=== PATIENT | female | born 1960 | race Caucasian/White ===

== ENCOUNTER 2024-12-18 09:57 | Outpatient (CLI) | payer MEDICARE, SELFPAY | END 2024-12-18 09:58 | disposition home or self-care (01) | LOC: AMB 12-19 12:49 | PROVIDERS: PCP Family Medicine; Visit Provider Emergency Medicine | DX: T78.40XA Allergy, unspecified, initial encounter (principal); I95.9 Hypotension, unspecified | CPT/HCPCS: A0425; A0427 ==

== ENCOUNTER 2024-12-18 10:25 | Emergency (ER) | payer MEDICARE, SELFPAY ==
[2024-12-18] VITALS (88 sets, daily range): BP systolic 136–201; BP diastolic 65–150; PULSE 97–118; RESP 14–41; TEMP 36.5–36.8; O2SAT 90–100; BMI 38.4
[2024-12-18] MEDS: METHYLPREDNISOLONE SOD SUCC 62.5 MG/ML (125) 125 MG IVP (10:28)
[2024-12-18] MEDS: FAMOTIDINE 10 MG/ML inj 20 MG IVP (10:30)
--- NOTE | 2024-12-18 10:48 | ED.GENADULT ---
HPI - General Adult General Chief complaint: Allergic Reaction Stated complaint: allergic reaction Time Seen by Provider: 12/18/24 10:29 History of Present Illness HPI narrative: 64-year-old female brought to the ER today by EMS with concern for anaphylactic reaction to CT contrast Per EMS report she was at the [facility] clinic getting a CT scan with contrast they apparently has a workup for some breast tumors. Shortly after getting the contrast she started having tightness in her throat. She was hypotensive per clinic report and received 1 dose of epi from clinic. She got a 2nd dose of IM epi from EMS. Subsequent blood pressures was still hypotensive. Mental status is little bit drowsy. Oxygen sats are to measure because of poor perfusion of her skin. No stridor. For checked in her airway. On 10 L face mask Additional history provided on the paperwork from the clinic is that she was actually in the clinic today to get a CT scan of her chest and abdomen because she had a renal mass and some lung Mets. She received the contrast. She was hypotensive and hypoxic. She received Benadryl and epinephrine from clinic staff and subsequent blood pressures were more elevated at 1 50s. 911 was called. She has no known history of allergies to medicines and no history of contrast allergies. Not the patient is here in the ER she has a little bit drowsy but answers questions. When asked directly she says she is not having any trouble breathing. She says she is not having chest pain. She is not having any sore throat or scratchiness in her throat. She says she her biggest problem is that she just feels cold. She is shivering. And difficult to get initial vital signs. Initial blood pressure is normal at 136/90. Not able to get a pulse ox because of shivering. We placed a pulse oximeter probe on her nose but it is reading. Eventually were able to get a pulse ox probe on her forehead and reads a sat of 96%. She has a lot of shivering artifact on her compliance monitor but by my heart auscultation her heart rate is around 100. CT abd 12/14/24 IMPRESSION: ? 1. Very large left renal mass is likely renal cell carcinoma. 2. High suspicion for left renal vein tumor thrombus. 3. Extensive pulmonary metastasis. 4. There is an indeterminate left adrenal nodule as well as a left adrenal myelolipoma. The right adrenal nodule has Hounsfield units more consistent with an adenoma. 5. Indeterminate right renal lesion should be better characterized prior to left renal intervention. After the patient arrived we were able to get into her liner chart and see notes from the clinic. Per [facility] notes Related Data Allergies Allergy/AdvReac Type Severity Reaction Status Date / Time Iodinated Contrast Media Allergy Intermediate Verified 12/18/24 15:20 PFSH PFS Social History Non-prescribed substance use: denies use Exam Narrative: Exam Narrative: Primary Survey: A- patent. Speaking clearly. Phonation normal. No stridor. B- breathing easily. Lung sounds clear and equal. Difficult to get good oxygen reading. Placed on facemask to make sure there is not hypoxia. Subsequent readings are 96% 10 L. C- no active bleeding. Blood pressure stable to elevated. Symmetric pulses and cap refill in 4 extremities. Tachycardic D- awake but eyes closed. Seems drowsy but does follow commands and answer questions. No focal deficits. Constitutional: Appears well-developed and well-nourished. Alert. Conversant. Non toxic. HENT: Head: Atraumatic. Nose: Nose normal. Mouth/Throat: Oral mucosa is clear and moist. no trismus. Pharynx normal. Tonsils symmetric. No tonsillar enlargement, erythema, or exudate. No stridor. Eyes: Conjunctivae normal. EOM normal. Pupils equal, round, and reactive to light. No scleral icterus. Neck: Normal range of motion. Neck supple. No tracheal deviation present. No JVD Cardiovascular: Tachycardic, around 100, regular rhythm. No gallop. No friction rub. No murmur heard. Symmetric radial artery pulses Pulmonary/Chest: Effort normal. No stridor. No respiratory distress. No wheezes. No rales. No rhonchi . No tenderness. Abdominal: Soft.No distension. No mass. No tenderness. No rebound. No guarding. Musculoskeletal: RUE: Normal range of motion. No tenderness. No deformity LUE: Normal range of motion. No tenderness. No deformity RLE: Normal range of motion. No edema. No tenderness. No deformity LLE: Normal range of motion. No edema. No tenderness. No deformity Neurological: Alert and oriented to person, place, and time. Normal strength. CN II-VII intact. No sensory deficit. GCS eye subscore is 4. GCS verbal subscore is 5. GCS motor subscore is 6. Normal coordination Skin: Skin of her face and core is pink is warm and dry. No hives. She does have a little bit of vaso constriction affecting her fingers and toes. Her family who is with her says that she is ?always cold. ? No rash noted. No pallor. Normal capillary refill. No mottling. No diaphoresis. Psychiatric: Drowsy. Limited Const: Vital Signs, click to edit/add: Vital Signs - 24 hr 12/18/24 10:30 12/18/24 10:40 12/18/24 10:41 Temperature 97.7 F Pulse Rate 103 H Pulse Rate [Pulse Oximeter] 99 Respiratory Rate 24 36 H 38 H Blood Pressure 172/81 H Blood Pressure [Le ft Upper Arm] 136/86 Pulse Oximetry 96 Oxygen Delivery Me thod OxyMask Oxygen Flow Rate 8 12/18/24 10:43 12/18/24 10:45 12/18/24 10:52 Temperature Pulse Rate 101 H 99 97 Pulse Rate [Pulse Oximeter] Respiratory Rate 33 H 36 H 25 H Blood Pressure 201/123 H 190/94 H Blood Pressure [Le ft Upper Arm] Pulse Oximetry 94 95 96 Oxygen Delivery Me thod OxyMask OxyMask Oxygen Flow Rate 4 8 12/18/24 11:00 12/18/24 11:02 12/18/24 11:03 Temperature Pulse Rate 98 99 99 Pulse Rate [Pulse Oximeter] Respiratory Rate 27 H 27 H 25 H Blood Pressure 179/95 H Blood Pressure [Le ft Upper Arm] Pulse Oximetry 95 96 96 Oxygen Delivery Me thod Oxygen Flow Rate 8 12/18/24 11:12 12/18/24 11:15 12/18/24 11:22 Temperature Pulse Rate 99 100 102 H Pulse Rate [Pulse Oximeter] Respiratory Rate 26 H 26 H 26 H Blood Pressure 167/70 H 175/78 H Blood Pressure [Le ft Upper Arm] Pulse Oximetry 96 95 95 Oxygen Delivery Me thod Oxygen Flow Rate 8 12/18/24 11:30 12/18/24 11:32 12/18/24 11:42 Temperature Pulse Rate 103 H 104 H 106 H Pulse Rate [Pulse Oximeter] Respiratory Rate 22 23 Blood Pressure 171/83 H 159/86 H Blood Pressure [Le ft Upper Arm] Pulse Oximetry 93 94 93 Oxygen Delivery Me thod Oxygen Flow Rate 12/18/24 11:45 12/18/24 11:52 12/18/24 12:00 Temperature Pulse Rate 105 H 106 H 107 H Pulse Rate [Pulse Oximeter] Respiratory Rate 25 H 24 26 H Blood Pressure 162/73 H Blood Pressure [Le ft Upper Arm] Pulse Oximetry 93 93 94 Oxygen Delivery Me thod Oxygen Flow Rate 12/18/24 12:10 12/18/24 12:12 12/18/24 12:15 Temperature Pulse Rate 109 H 108 H 109 H Pulse Rate [Pulse Oximeter] Respiratory Rate 28 H 29 H 21 Blood Pressure 145/82 H 151/65 H Blood Pressure [Le ft Upper Arm] Pulse Oximetry 92 94 94 Oxygen Delivery Me thod Oxygen Flow Rate 4 12/18/24 12:22 12/18/24 12:30 12/18/24 12:32 Temperature Pulse Rate 108 H 108 H 108 H Pulse Rate [Pulse Oximeter] Respiratory Rate 23 15 19 Blood Pressure 137/77 143/67 H Blood Pressure [Le ft Upper Arm] Pulse Oximetry 95 93 94 Oxygen Delivery Me thod Oxygen Flow Rate 12/18/24 12:41 12/18/24 12:45 12/18/24 12:52 Temperature Pulse Rate 107 H 107 H 105 H Pulse Rate [Pulse Oximeter] Respiratory Rate 22 22 21 Blood Pressure 147/79 H 153/91 H Blood Pressure [Le ft Upper Arm] Pulse Oximetry 92 92 91 Oxygen Delivery Me thod Oxygen Flow Rate 12/18/24 13:00 12/18/24 13:02 12/18/24 13:12 Temperature Pulse Rate 105 H 105 H 103 H Pulse Rate [Pulse Oximeter] Respiratory Rate 22 21 17 Blood Pressure 165/109 H 162/84 H Blood Pressure [Le ft Upper Arm] Pulse Oximetry 91 92 97 Oxygen Delivery Me thod Oxygen Flow Rate 12/18/24 13:15 12/18/24 13:22 12/18/24 13:23 Temperature Pulse Rate 106 H 102 H 102 H Pulse Rate [Pulse Oximeter] Respiratory Rate 29 H 21 21 Blood Pressure 161/89 H Blood Pressure [Le ft Upper Arm] Pulse Oximetry 93 91 91 Oxygen Delivery Me thod Oxygen Flow Rate 12/18/24 13:30 12/18/24 13:32 12/18/24 13:42 Temperature Pulse Rate 102 H 102 H 101 H Pulse Rate [Pulse Oximeter] Respiratory Rate 21 20 20 Blood Pressure 162/99 H 160/95 H Blood Pressure [Le ft Upper Arm] Pulse Oximetry 92 90 91 Oxygen Delivery Me thod Room Air Oxygen Flow Rate 12/18/24 13:45 12/18/24 13:52 12/18/24 14:00 Temperature Pulse Rate 100 101 H 101 H Pulse Rate [Pulse Oximeter] Respiratory Rate 20 21 21 Blood Pressure 159/72 H Blood Pressure [Le ft Upper Arm] Pulse Oximetry 92 100 100 Oxygen Delivery Me thod Oxygen Flow Rate 12/18/24 14:02 12/18/24 14:12 12/18/24 14:15 Temperature Pulse Rate 103 H 101 H 101 H Pulse Rate [Pulse Oximeter] Respiratory Rate 20 19 21 Blood Pressure 159/97 H 163/93 H Blood Pressure [Le ft Upper Arm] Pulse Oximetry 100 94 94 Oxygen Delivery Me thod Oxygen Flow Rate 12/18/24 14:22 12/18/24 14:30 12/18/24 14:32 Temperature Pulse Rate 103 H 102 H Pulse Rate [Pulse Oximeter] Respiratory Rate 19 18 22 Blood Pressure 172/100 H 175/98 H Blood Pressure [Le ft Upper Arm] Pulse Oximetry 93 98 98 Oxygen Delivery Me thod Oxygen Flow Rate 12/18/24 14:42 12/18/24 14:45 12/18/24 14:52 Temperature Pulse Rate 101 H 103 H 104 H Pulse Rate [Pulse Oximeter] Respiratory Rate 21 18 20 Blood Pressure 184/92 H 159/100 H Blood Pressure [Le ft Upper Arm] Pulse Oximetry 98 98 98 Oxygen Delivery Me thod Oxygen Flow Rate 12/18/24 15:00 12/18/24 15:02 12/18/24 15:12 Temperature Pulse Rate 106 H 106 H 105 H Pulse Rate [Pulse Oximeter] Respiratory Rate 21 25 H 24 Blood Pressure 154/83 H 146/102 H Blood Pressure [Le ft Upper Arm] Pulse Oximetry 96 95 96 Oxygen Delivery Me thod Oxygen Flow Rate Course Course ED Course: Recheck-patient was up to the bathroom. Overall feeling better. Mental status normal. Blood pressure is now been stable for almost 2 hours. Nurses note that she became short of breath when taken off oxygen sats did drop to the 80s on room air so they placed her back on face mask. I recheck the patient. Lungs are still clear. No definite wheezing to suggest bronchospasm. Will try DuoNeb any way. No definite rales to suggest pneumonia but will get a chest x-ray to look for possible aspiration. Labs show a white count of 14. Unclear etiology. She may have had a recent urinary tract infection. Will check a urine sample as well. Will add on cardiac labs although she is not having any chest pain to suggest ACS. With her recent diagnosis of kidney cancer she would be hypercoagulable and at risk for PE. However CT PA is clearly contraindicated based on her contrast allergy. Reevaluation(s) Reevaluation #1: Recheck-no definite change after. Oxygens still required to keep sats above 90%. She is on 2 L face mask. No signs of any evolving stridor, airway swelling, hives. Blood pressures been stable now for couple of hours Recheck-after conversations with nursing, looking the [facility] record we do not have any access to the CT scan results from earlier. I was able to talk to our x-ray techs and they were able to see that the images are available in see naps and would be available to radiologist [facility]. I contacted this [facility] phone number and asked there assistant department manager there to make the outpatient CT scan a stat read for the radiologist so we get the results today. We were able to get the CT results. IMPRESSION : 1. Final report is deferred pending arrival of comparison studies. 2. Large left renal mass and a probable large tumor thrombus involving the left renal vein and the supra renal inferior vena cava and hepatic IVC to the level of the right atrium. 3. Multiple nodules and masses compatible with a large burden of pulmonary metastatic disease. Additional adenopathy in the left pulmonary hilus. 4. No signs of pulmonary embolic disease. Recheck-patient is still hypoxic on 2 L. Overall blood pressure remained stable. Mental status improved. Suspect she was quite drowsy at presentation because of the IV Benadryl she had received. Discussed with hospitalist from [place], Dr. Jama. He agrees that the patient does require hospitalization. He and I question whether not this persistent hypoxia is truly due to anaphylaxis. There is no sign that she aspirated on her chest x-ray. Consider also the possibility that she suffered a PE shortly after the CT scan of her chest was completed and that was the cause of her hypotension, shortness of breath, hypoxia. Persistent hypoxia and persistent sinus tachycardia would fit with the presence of a PE. Likewise and terminal proBNP is elevated, in the absence of pulmonary edema this might suggest right ventricular strain from pulmonary embolism. We agree that it would be beneficial for the patient to start on anticoagulation. Will start on heparin bolus and drip for DVT/PE protocol since she does have the tumor thrombus plus or minus an actual IVC clot. She would be at risk for hypercoagulability given her active cancer. In terms of disposition, we discussed this. She certainly needs hospitalization given persistent hypoxia. We did reach out to radiology to see if there is a radiologist here in [place] who could do a biopsy of any of the patient's lesions while she is inpatient. Unfortunately the radiologist from [place] is not available this week. Therefore, Dr. Jama recommends transfer to a facility where they have IR, Urology, oncology consultative services for further workup. Recheck-patient actually doing better. She is able to come off oxygen and is satting 92% on room air. However when she ambulates, she become significantly tachypneic and short of breath (but not hypoxic). Blood pressure remains elevated. Heart rate about 111 sinus tach. When resting she is conversant and breathing easily at rest becomes tachypneic with exertion. We made contact with the oncology nurse practitioner for this patient's Clinic and Ramu Gallardo. Since she is no longer hypoxic we discussed the possibility of her discharging home. The oncology nurse practitioner was going to talk to the oncologist about initiation of anticoagulation in the setting of this thrombus (unclear if it is all tumor or if is actually associated clot). However, given the patient's persistent dyspnea, we feel that hospitalization is warranted. She is simply too short of breath and would not be able to walk up her steps to get into her home. Subsequently discussed with hospitalist at [facility], Dr. Muller. He agrees the plan to heparinize and will accept the patient in transfer so she can have further workup and specialty consultative care. Patient and her daughter are in agreement. Patient started on heparin. Vital Signs Vital signs: Initial Vital Signs Temperature 97.7 F 12/18/24 10:30 Temperature Source Temporal Artery Scan 12/18/24 10:30 Pulse Rate 99 12/18/24 10:30 Respiratory Rate 24 12/18/24 10:30 Respiratory Effort Normal, Spontaneous, Non-Labored 12/18/24 10:30 Respiratory Depth Shallow 12/18/24 10:30 Respiratory Pattern Normal 12/18/24 10:30 Blood Pressure 136/86 12/18/24 10:30 Blood Pressure Mean 102 12/18/24 10:30 Vital Signs Temperature 97.7 F 12/18/24 10:30 Pulse Rate 99 12/18/24 10:30 Respiratory Rate 24 12/18/24 10:30 Blood Pressure 136/86 12/18/24 10:30 Temperature 97.7 F 12/18/24 10:30 Pulse Rate 105 H 12/18/24 15:12 Respiratory Rate 24 12/18/24 15:12 Blood Pressure 146/102 H 12/18/24 15:12 Pulse Oximetry 96 12/18/24 15:12 Oxygen Delivery Method Room Air 12/18/24 13:32 Oxygen Flow Rate 4 12/18/24 12:15 Medications Administered Medications: Discontinued Medications Generic Name Dose Route Start Last Admin Trade Name Freq PRN Reason Stop Dose Admin Albuterol 2.5 mg 12/18/24 12:14 12/18/24 12:35 Albuterol Sulfate 2.5 Mg/3 Ml Vial.Neb NEB 12/18/24 12:15 2.5 mg ONCE ONE Administration Famotidine 20 mg 12/18/24 10:30 12/18/24 10:30 Famotidine 10 Mg/Ml Inj IVP 12/18/24 10:31 20 mg ONCE ONE Administration Sodium Chloride 1,000 mls @ 1,000 mls/hr 12/18/24 10:30 12/18/24 12:15 0.9 % Sodium Chloride 1000 Ml IV 12/18/24 11:29 Infused .Q1H ELIZABETH Infusion Methylprednisolone Sodium Succinate 125 mg 12/18/24 10:30 12/18/24 10:28 Methylprednisolone Sod Succ 62.5 Mg/Ml (125) IVP 12/18/24 10:31 125 mg ONCE ONE Administration Medical Decision Making MDM Narrative Medical decision making narrative: 64-year-old female with a complex presentation. She was brought to the ER today by EMS from the [facility] clinic after developing shortness of breath, hypotension, dizziness at the [facility] clinic today after having had a CT scan with IV contrast. Initial concern was for possible anaphylaxis. Per the patient's report she does recall having some scratchiness in her throat and maybe some subjective swelling or face. However she has not had any hives or any other definitive symptoms of allergic reaction here. Although I am strongly suspicious that she truly was anaphylactic to the CT contrast dye,. I maintain an open differential; including possibility that she had a PE. From an allergy standpoint she has remained normotensive throughout her ER stay. Additionally Treated with steroids and Pepcid. She has not developed any signs of airway swelling, or recurrent hypotension. No cutaneous findings. She was nauseous a presentation but other than that no GI findings. We have observed the patient for 6 hours and blood pressure/airway remained stable. She did have drowsiness and nonfocal altered mental status when she presented and is gradually improved over the 1st couple of hours. Suspect this was related to the IV Benadryl she had appropriately received at the [facility]. Her main symptom here in the ER was hypoxia. She was hypoxic during several hours of observation, but during that time lungs were clear and did not have any wheezing. We did try an empiric albuterol neb with no change. Hypoxia prompted further workup. Chest x-ray does show multiple pulmonary nodules but no obvious signs of infiltrate to suggest that she aspirated. No pneumothorax. No signs of pulmonary edema. EKG and troponin were obtained to look for cardiac ischemia or other cause for hypoxia and are normal. We were able to obtain the CT scan results of the patient's chest that were done at the [facility] clinic this morning. Per that CT did she did not have any blood clots in her lungs at the time of imaging but did have a large tumor thrombus in the left renal vein and inferior vena cava. Difficult to know if this is truly a solid tumor in the vena cava or if there is actually an associated clot. Given the patient's persistent hypoxia in the absence of other clear signs of allergy I am concerned that she may have actually embolized a PE shortly after the CT scan (a clot was not visible in the pulmonary arteries at the time of imaging). She does have persistent tachycardia, mildly elevated BNP. Fortunately after about 4 hours off sedation the patient was able to wean off oxygen is now breathing room air. She is breathing relatively comfortable while resting but does have significant dyspnea on exertion associated with tachypnea on exertion, but hypoxia. In consultation with accepting hospitalist service, will start the patient on heparin for potential PE as well as for the possibility of a IVC clot. We selected heparin rather than oral anticoagulants because the patient will also need further workup with biopsies of her renal mass and further treatment. Heparin would be easier to turn off/reverse, then oral anticoagulants. Since specialty consultation is not available here in [place],( radiology for biopsies, Urology, oncology), transfers indicated for further workup. She is accepted by the hospitalist service at at [facility]. There may be up to an 8 hour delay before she can go. She will be monitored here in the [place] ER and maintain a heparin drip. Lab Data Labs: Lab Results 12/18/24 12/18/24 12/18/24 Range/Units 10:46 11:30 12:20 WBC 14.81 H (4.50-11.00) K/uL RBC 6.04 H (4.00-5.20) m/uL Hgb 15.3 (12.0-16.0) gm/dL Hct 48.0 (33.0-51.0) % MCV 80 (80-100) fL MCH 25 L (26-34) pg MCHC 32 (32-36) gm/dL RDW Coeff of Sai 17.2 H (11.5-15.5) % Plt Count 297 (140-440) K/uL Neut % (Auto) 93.4 H (42.0-72.0) % Lymph % (Auto) 4.6 L (20-44) % [place] % (Auto) 0.6 (0.0-11.0) % Eos % (Auto) 0.4 (0.0-7.0) % Baso % (Auto) 0.3 (0.0-3.0) % Neut # (Auto) 13.80 H (1.7-7.0) K/uL Lymph # (Auto) 0.70 L (0.90-2.90) K/uL [place] # (Auto) 0.10 (0.00-0.90) K/UL Eos # (Auto) 0.10 (0.00-0.50) K/uL Baso # (Auto) 0.00 (0.00-0.30) K/uL Abs Immat Gran (auto) 0.10 (0.00-0.30) K/uL Imm/Tot Granulo (auto) 0.7 % INR 1.56 H (0.91-1.10) APTT 47 H (23-33) Seconds VBG pH 7.319 L (7.32-7.43) VBG pCO2 45 (40-50) mmHG VBG pO2 32.2 (25-47) mmHG VBG HCO3 23 (21-28) mmol/L Sodium 133 L (135-149) mmol/L Potassium 4.3 (3.6-5.1) mmol/L Chloride 99 (96-114) mmol/L Carbon Dioxide 25 (20-32) mmol/L Anion Gap 9 (7-15) mEq/L BUN 19 (7-30) mg/dL Creatinine 1.2 (0.5-1.5) mg/dL Estimated Creat Clear 36.47 Estimated GFR 50 ml/min Glucose 169 H (60-115) mg/dL Calcium 9.8 (8.4-10.6) mg/dL Troponin I 0.03 (0.01-0.04) ng/mL NT-Pro-B Natriuret Pep 443 H (See Note) pg/mL Urine Color (Yellow) Urine Appearance (Clear) Urine pH (5.0-8.5) Ur Specific [place] (1.000-1.030) Urine Protein (Negative) Urine Glucose (UA) (Negative) Urine Ketones (Negative) Urine Blood (Negative) Urine Nitrite (Negative) Urine Bilirubin (Negative) Urine Urobilinogen (0.2-1.0) Ur Leukocyte Esterase (Negative) Urine RBC (0-2) Urine WBC (0-5) Ur Squamous Epith Cells (None-Few) Urine Bacteria (None) SARS-CoV-2 (PCR) Negative SARS-CoV-2 (Negative) Influenza Type A (PCR) Negative PCR FLU A (Negative) Influenza Type B (PCR) Negative PCR FLU B (Negative) RSV (PCR) Negative PCR RSV (Negative) 12/18/24 Range/Units 15:20 WBC (4.50-11.00) K/uL RBC (4.00-5.20) m/uL Hgb (12.0-16.0) gm/dL Hct (33.0-51.0) % MCV (80-100) fL MCH (26-34) pg MCHC (32-36) gm/dL RDW Coeff of Sai (11.5-15.5) % Plt Count (140-440) K/uL Neut % (Auto) (42.0-72.0) % Lymph % (Auto) (20-44) % [place] % (Auto) (0.0-11.0) % Eos % (Auto) (0.0-7.0) % Baso % (Auto) (0.0-3.0) % Neut # (Auto) (1.7-7.0) K/uL Lymph # (Auto) (0.90-2.90) K/uL [place] # (Auto) (0.00-0.90) K/UL Eos # (Auto) (0.00-0.50) K/uL Baso # (Auto) (0.00-0.30) K/uL Abs Immat Gran (auto) (0.00-0.30) K/uL Imm/Tot Granulo (auto) % INR (0.91-1.10) APTT (23-33) Seconds VBG pH (7.32-7.43) VBG pCO2 (40-50) mmHG VBG pO2 (25-47) mmHG VBG HCO3 (21-28) mmol/L Sodium (135-149) mmol/L Potassium (3.6-5.1) mmol/L Chloride (96-114) mmol/L Carbon Dioxide (20-32) mmol/L Anion Gap (7-15) mEq/L BUN (7-30) mg/dL Creatinine (0.5-1.5) mg/dL Estimated Creat Clear Estimated GFR ml/min Glucose (60-115) mg/dL Calcium (8.4-10.6) mg/dL Troponin I (0.01-0.04) ng/mL NT-Pro-B Natriuret Pep (See Note) pg/mL Urine Color Yellow (Yellow) Urine Appearance Turbid A (Clear) Urine pH 5.5 (5.0-8.5) Ur Specific [place] 1.020 (1.000-1.030) Urine Protein 2+ A (Negative) Urine Glucose (UA) Negative (Negative) Urine Ketones 1+ A (Negative) Urine Blood 3+ A (Negative) Urine Nitrite Negative (Negative) Urine Bilirubin Negative (Negative) Urine Urobilinogen 0.2 (0.2-1.0) Ur Leukocyte Esterase Negative (Negative) Urine RBC >100 A (0-2) Urine WBC 0-2 (0-5) Ur Squamous Epith Cells None (None-Few) Urine Bacteria None (None) SARS-CoV-2 (PCR) (Negative) Influenza Type A (PCR) (Negative) Influenza Type B (PCR) (Negative) RSV (PCR) (Negative) Imaging Data Chest x-ray: Attestation: I have reviewed the pertinent imaging results. Radiologist's impression: IMPRESSION: Bilateral pulmonary nodules and masses concerning for metastasis or possibly septic emboli. CT chest, abdomen and pelvis with IV contrast recommended if the etiology of this findings is not known. Dictated by Amanuel Carbajal MD ECG Data Attestation: I personally reviewed and interpreted this ECG as follows: Interpretation: Sinus tachycardia Rate 103 [place] interval 176 Normal QRS axis. Poor R-wave progression No ST segment elevation or depression. QT 346, QTC 453 Discharge Plan Discharge Clinical Impression: Anaphylaxis, Hypoxia, Left kidney mass, Renal vein thrombosis, IVC thrombosis Patient Disposition: [facility] Greg Stand Alone Forms: [facility] Info Instructions Procedures ABG Interpretation ABG Results: 12/18/24 10:46 VBG pH 7.319 L VBG pCO2 45 VBG pO2 32.2 VBG HCO3 23
[2024-12-18 11:05] LABS: HCO3 VBG 23 mmol/L (21-28); PCO2 VBG 45 mmHG (40-50); PO2 VBG 32.2 mmHG (25-47); pH VBG 7.319 (7.32-7.43)
--- OUTSIDE RECORDS SUMMARY | 2024-12-18 11:06 | XMS_ITS | Clinical Summary ---
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 0 019 Active albuterol HFA (PRO-AIR; VENTOLIN; PROVENTIL) 90 mcg/actuation inhalerIndication s:COVID-19 Inhale 2 Puffs by mouth every 4 hours if needed (cough or wheezing). 1 Each 5 025 Active dulaglutide (TRULICITY) 1.5 mg/0.5 mL subcutaneous penIndications:Ty pe 2 diabetes mellitus without complication, without long-term current use of insulin (HC) Inject 1.5 mg subcutaneous once weekly. 6 mL 3 025 Active atorvastatin (LIPITOR) 20 mg tabletIndications :Hyperlipidemia, unspecified hyperlipidemia type Take 1 Tablet (20 mg) by mouth at bedtime. 90 Tablet 3 025 Active nortriptyline (PAMELOR) 25 mg capsuleIndication s:Concussion without loss of consciousness, subsequent encounter Take 1 Capsule (25 mg) by mouth at bedtime. 90 Capsule 3 025 Active propranoloL 20 mg tabletIndications :Post-concussion headache Take 1 Tablet (20 mg) by mouth two times daily. 180 Tablet 3 025 Active fluticasone propion-salmetero L (ADVAIR) 250-50 mcg/Dose diskus inhalerIndication s:Post-viral cough syndrome INHALE 1 DOSE BY MOUTH TWICE DAILY 60 Each 11 Active ciprofloxacin (CIPRO) 500 mg tabletIndications :urinary tract infection Take 1 Tablet (500 mg) by mouth two times daily for 7 days. 14 Tablet 025 2024 Active fluticasone propion-salmetero L (Advair Diskus) 250-50 mcg/Dose diskus inhalerIndication s:Post-viral cough syndrome Inhale 1 Puff by mouth two times daily. 60 Each 1 025 2024 Discontinued cephalexin 500 mg capsuleIndication s:Acute cystitis with hematuria Take 1 Capsule (500 mg) by mouth three times daily for 7 days. 21 Capsule 025 2024 Active Problems Problem Noted Date Diagnosed Date Stage 3 chronic kidney disease 12/18/2024 Overview (12/18/2024): 12/14/24: Cr 1.08 mg/dL 12/14/24: GFR 57 mL/min/1.73m2 12/14/24: BUN 15 mg/dL On meds: propranolol Renal mass 12/17/2024 Morbid obesity 07/25/2023 Overview (12/18/2024): AI Summary: The patient's history included morbid obesity, which was mentioned on 07/25/2023, 04/30/2024 and 06/13/2024. It was also mentioned that the patient had obesity with a body mass index (BMI) of 25 or higher, which increased the risk for complications of illness, as noted on 09/04/2021 and 10/16/2022. 06/13/24: BMI 41.6 kg/m2 06/13/24: Wt 103.3 kg On meds: dulaglutide Recent encounter dx: 04/30/24: Appointment - [facility] 07/25/23: Appointment - [facility] Type 2 diabetes mellitus 09/13/2021 Overview (12/18/2024): AI Summary: The patient was diagnosed with Type 2 diabetes mellitus without complication, without long-term current use of insulin. The patient presented for diabetes follow-up on 04/30/2024 and 01/25/2024, and stated that their blood sugar results were in the 120-150 range on 04/30/2024 and that their diabetes mellitus was well controlled on 07/25/2023. The patient had a diabetes eye exam scanned within the past 365 days and metformin was prescribed on 09/29/2021, 05/17/2023, 07/25/2023, 11/18/2023, 01/25/2024, 01/26/2024 and 04/23/2024, semaglutide was prescribed on 01/25/2024, dulaglutide was prescribed on 02/06/2024 and 04/30/2024, and Lipitor was added for lipid management with diabetes mellitus on 07/25/2023. 04/30/24: A1c 6.9 % of total Hgb 01/25/24: Cr 0.75 mg/dL On meds: dulaglutide Recent encounter dx: 04/30/24: Appointment - [facility] 04/21/24: Support OP Encounter - [facility] 03/13/24: Appointment - [facility] 01/29/24: Support OP Encounter - [facility] 01/25/24: Appointment - [facility] Recent studies: 01/25/24: XR DXA BONE DENSITY 2 SITES AXIAL [10126.1] by Maira Reece MD, Zac Nino MD ... [-] RISK FACTORS: Family History of Osteoporosis, Family History of Hip Fracture (parental), History of Fragility Fracture (at a major site), White Race, and Diabetes type 2 CURRENT MEDICATION FOR BONE LOSS: NONE Recent notes: 06/13/24: Progress Notes by aMira Reece MD ... [+] ? Type 2 diabetes mellitus without complication, without long-term current use of insulin (HC) E11.9 04/30/24: Progress Notes by Maira Reece MD ... [+] Type 2 diabetes mellitus without complication, without long-term current use of insulin (HC) (Primary) 03/13/24: Progress Notes by Maira Reece MD ... [+] Type 2 diabetes mellitus without complication, without long-term current use of insulin (HC) E11.9 07/25/23: Progress Notes - Medicare Wellness Visit - Medicare Wellness Visit by Maira Reece MD ... [+] Type 2 diabetes mellitus without complication, without long-term current use of insulin (HC) E11.9 HEMOGLOBIN A1C MONITORING (POCT) 05/17/23: Progress Notes by Maira Reece MD ... [+] Type 2 diabetes mellitus without complication, without long-term current use of insulin (HC) E11.9 metFORMIN (GLUCOPHAGE XR) 500 mg Extended-Release tablet Concussion with no loss of consciousness 018 Rosacea 01/27/2018 Encounters Date Type Department Care Team Description 12/18/2024 11:00 AM CDT Orders Only [facility] [address] [place] [address] [place], [place] <No scans attached> 12/18/2024 9:30 AM CDT Ancillary Procedure [facility] [address] [place] [address] Arrived 12/18/2024 Telephone [facility] [address] [place] [address] Maryellen Azevedo MD 12/17/2024 Telephone [facility] [address] [facility] [place] [phone] Maira Reece MD Follow Up 12/17/2024 Travel 12/17/2024 Orders Only [facility] [address] [facility] [place] [phone] Melany Rodriguez MD <No scans attached> 12/17/2024 Telephone [facility] [address] [place] [phone] [facility] Cancer Referral (Left renal mass [N28.89]/Pulmonary nodules/lesions, multiple /) 12/14/2024 11:55 AM CDT - 12/14/2024 11:59 PM CDT Hospital Encounter [facility] [address] [place] [address] Maira Reece MD UTI (urinary tract infection), uncomplicated 12/14/2024 11:30 AM CDT Office Visit [facility] [address] [facility] [place] [address] Maira Reece MD UTI (took last of medication yesterday, started to have bleeding yesterday before the final pill; ); Cough (been going on for months; wont seem to go away; starting with whooping cough back in April ) 12/14/2024 Telephone [facility] [address] [place] [address] Maira Reece MD Results (Critical imaging results) 12/14/2024 Travel 12/06/2024 5:55 PM CDT Office Visit [facility] [address] [facility] [place] [address] Xenia Ochoa, BATSHEVA Urinary Problem (Dysuria, hematuria, frequency x 1 hour) 12/06/2024 Travel 11/27/2024 Refill [facility] [address] [place] [address] Maira Reece MD Refill Request (Fluticasone Propion-salmeterol) 11/06/2024 8:16 AM CDT - 11/06/2024 11:59 PM CDT Hospital Encounter [facility] [address] [facility] [place] [address] Routine check-up 11/05/2024 10:00 AM CDT Office Visit [facility] [address] [place] [address] Maira Reece MD Medicare ANNUAL (subsequent) Visit 11/05/2024 Orders Only [facility] [address] [place] [address] Maira Reece MD <No scans attached> 11/05/2024 Travel 10/11/2024 Orders Only [facility] Scanner 1 scan: (1-Ord) [facility], 10/11/2024 from Last 3 Months Immunizations Immunization Administration Dates Next Due COVID-19 vaccine (Pfizer-Bio NTech 30mcg/0.3mL) 12YO+ ARIANE-SUCROSE PF, MDV 08/28/2021 COVID-19 vaccine (Pfizer-Bio NTech 30mcg/0.3mL) PF, MDV 12/29/2020,04/22/2020,04/01/2020 Influenza Virus, Unspecified 12/31/2008 Influenza, IIV3 (Age 6-35 mos) 04/06/2017 Influenza, IIV3 (Age >=3 years) 04/06/2017,01/25,04/12/2012 Influenza, IIV4 02/08/2022,,01/24/2020,2018,03/04/2018,02/02/2016 Influenza, IIV4 (=>6mos) MDV 12/28/2018 Influenza, Inactivated IIV3 (Age 65+ Years) Preserv Free 02/10/2024 Influenza,CCIIV4 PRESERV FREE 02/04/2023, 018 Pneumococcal Conj 20-valent (Prevnar 20) 07/25/2023 Family History Medical History Relation Name Comments No Known Problems Brother No Known Problems Daughter No Known Problems Father No Known Problems Half-Brother No Known Problems Half-Sister No Known Problems Maternal Aunt No Known Problems Maternal Grandfather No Known Problems Maternal Grandmother No Known Problems Maternal Uncle No Known Problems Mother No Known Problems Other No Known Problems Paternal Aunt No Known Problems Paternal Grandfather No Known Problems Paternal Grandmother No Known Problems Paternal Uncle No Known Problems Sister No Known Problems Son Cancer-breast No Family History Relation Name Status Comments Brother Daughter Father Half-Brother Half-Sister Maternal Aunt Maternal Grandfather Maternal Grandmother Maternal Uncle Mother Other Paternal Aunt Paternal Grandfather Paternal Grandmother Paternal Uncle Sister Son Social History Tobacco Use Types Packs/Day Years Used Date Smoking Tobacco: Never Smokeless Tobacco: Never Tobacco Cessation:Counseling Given: Yes Alcohol Use Standard Drinks/Week Comments Yes 0 (1 standard drink = 0.6 oz pur e alcohol) occasionally wine PHQ-2 Answer Date Recorded PHQ-2 TOTAL SCORE 0 11/05/2024 Social Connections Answer Date Recorded Do you often feel lonely or isolated from those around you? 0 12/14/2024 Alcohol Use Answer Date Recorded How often do you have a drink containing alcohol ? 0 12/14/2024 Average Number of Drinks Not on file 025 Frequency of Binge Drinking Not on file 11/26 Financial Resource Strain Answer Date R ecorded Difficulty of Paying Living Expenses 3 12/14/2024 Difficulty of Paying Living Expenses Not on file 12/14/2024 Food Insecurity Answer Date Recorded Do you worry your food will run out before you are able to buy more? 1 12/14/2024 Transportation Needs Answer Date Record ed Does lack of transportation keep you from medica l appointments? 1 12/14/2024 Does lack of transportation keep you from work, meetings or getting things that you need? 1 12/14/2024 Housing Stability Answer Date Recorded What is your housing situation today? 1 12/14/2024 Utilities Answer Date Recorded Do you have trouble paying f or utilities (for example, heat, electricity, water, phone)? 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 Gender Identity Not on file Sexual Orientation Not on file Obstetrics History Last Filed Vital Signs Vital Sign Reading Time Taken Comments Blood Pressure 138/88 12/14/2024 11:31 AM CDT Pulse 93 12/14/2024 11:31 AM CDT Temperature 35.9 C (96.7 F) 12/06/2024 6:07 PM CDT Respiratory Rate 18 12/14/2024 11:31 AM CDT Oxygen Saturation 95% 12/14/2024 11:31 AM CDT Inhaled Oxygen Concentration - - Weight 96 kg (211 lb 9.6 oz) 12/14/2024 11:31 AM CDT Height 157.5 cm (5' 2) 11/05/2024 10:00 AM CDT Body Mass Index 38.7 11/05/2024 10:00 AM CDT Plan of Treatment Upcoming Encounters Date Type Department Care Team (Late st Contact Info) Description 12/24/2024 1:30 PM CDT Office Visit [address] [phone] Maira Reece MD [address] [place] [address] 12/26/2024 6:30 AM CDT Appointment Medical [address] [address] 12/27/2024 3:30 PM CDT Office Visit [facility] [address] [place] [address] Melany Rodriguez MD [address] [place] [address] 04/05/2025 9:30 AM GAS DISPENSER Office Visit [address] [phone] Maira Reece MD [address] [place] [address] 06/14/2025 9:30 AM CDT Office Visit [address] [phone] Maira Reece MD [address] [place] [address] 11/06/2025 9:30 AM CDT Office Visit [address] [phone] Maira Reece MD [address] [place] [address] Health Maintenance Due Date Last Done Comments Tetanus booster 1969 Zoster (shingles) series for age 50+ (1 of 2) 2008 RSV vaccine for adults or (1 - Risk 60-74 years 1-dose series) 2018 COVID-19 vaccine series ( season) 2024 02/10/2024, 02/04/2023, 02/08/2022, Additional history exists Influenza Vaccine (#1) 2024 , 02/04/2023, 02/08/2022, Additional history exists BMI (ht and wt on same day) for age 18+ 11/05/2025 11/05/2024, 07/25/2023, 05/17/2023, Additional history exists Depression screening for age 12+ 11/06/2025 11/06/2024, 11/05/2024, 07/26/2023, Additional history exists Mammogram for age 45-75 11/06/2025 11/07/19 25, 08/29/2023, 12/25/2016, Additional history exists Medicare Wellness for age 65+ 11/06/2025 11/05/2024, 07/25/2023 Fecal testing sDNA-FIT (Cologuard) for age 45-75 08/14/2026 08/15/2023 Lipids for age 45-75 11/05/2029 11/05/2024, 07/25/19 Hepatitis C screening for age 18-79 Completed 07/25/2023 Pneumococcal series for age 50+ Completed 07/25/2023 DEXA/DXA scan for age 65+ Completed 01/25/2024 Hepatitis B series for 19+ Aged Out N o longer eligible based on patient's age to complete this topic Procedures Procedure Name Priority Date/Time Associated Diagnosis Comments GLUCOSE POCT [facility] ([facility]) Routine 12/18/2024 10:40 AM CDT LOC (loss of consciousness) (HC) URINALYSIS MICROSCOPIC STAT 12/14/2024 12:44 PM CDT UTI (urinary tract infection), uncomplicated URINE CULTURE STAT 12/14/2024 12:44 PM CDT UTI (urinary tract infection), uncomplicated UA W/ SEDIMENT EXAM REFLEXED PER CRITERIA STAT 12/14/2024 12:44 PM CDT UTI (urinary tract infection), uncomplicated CBC WITH AUTO DIFFERENTIAL STAT 12/14/2024 12:38 PM CDT UTI (urinary tract infection), uncomplicated BASIC METABOLIC PANEL STAT 12/14/2024 12:38 PM CDT UTI (urinary tract infection), uncomplicated CBC WITH AUTO DIFFERENTIAL STAT 12/14/2024 12:38 PM CDT UTI (urinary tract infection), uncomplicated CT ABDOMEN PELVIS STONE PROTOCOL WO Today 12/14/2024 12:25 PM CDT UTI (urinary tract infection), uncomplicated URINALYSIS MICROSCOPIC STAT 12/06/2024 6:10 PM CDT Urinary tract infection symptoms URINE CULTURE STAT 12/06/2024 6:10 PM CDT Urinary tract infection symptoms UA W/ SEDIMENT EXAM REFLEXED PER CRITERIA STAT 12/06/2024 6:10 PM CDT Urinary tract infection symptoms XR MAMMO BILAT SCREENING Routine 11/06/2024 8:36 AM CDT Routine check-up HEMOGLOBIN A1C Routine 11/05/2024 11:06 AM CDT Type 2 diabetes mellitus without complication, without long-term current use of insulin (HC) CBC W PLT NO DIFF Routine 11/05/2024 11: 06 AM CDT Type 2 diabetes mellitus without complication, without long-term current use of insulin (HC) BASIC METABOLIC PANEL Routine 11/05/2024 11:06 AM CDT Type 2 diabetes mellitus without complication, without long-term current use of insulin (HC) ALT (SGPT) Routine 11/05/2024 11:06 AM CDT Hyperlipidemia, unspecified hyperlipidemia type LIPID PANEL W REFLEX MEASURED LDL Routine 11/05/2024 11:06 AM CDT Hyperlipidemia, unspecified hyperlipidemia type SCAN-EYE EXAM 10/11/2024 12:00 AM CDT XR DXA BONE DENSITY 2 SITES AXIAL Routine 01/25/2024 2:04 PM CDT Postmenopausal SDNA-FIT EXTERNAL (COLOGUARD) Routine 08/15/2023 7:34 AM CDT Screening for colon cancer ANTI HCV Routine 07/25/2023 9:28 AM CDT Need for hepatitis C screening test from Last 3 Months or Most Recently Relevant to Health Maintenance Results * (ABNORMAL) POCT Glucose (12/18/2024 10:40 AM CDT) POCT GLUCOSE, HEMOCUE 124(H) 65 - 99 mg/dL 12/18/2024 10:42 AM CDT [facility] Comment: Fasting Reference Interval is based on [place] [employer] recommendation Point of care glucose results may vary from other glucose methodologies. Any results exhibiting inconsistency with the patient's clinical status should be repeated using a different testing method. Blood BLOOD SPECIMEN / Unknown [facility] / Unknown 12/18/2024 10:40 AM CDT 12/18/2024 10:40 AM CDT us Maryellen Azevedo MD LABORATORY Fi nal Result [facility] [address] [place] [address], [place] [phone] [facility] [address] [place] [address], [place] [phone] * (ABNORMAL) URINALYSIS MICROSCOPIC (12/14/2024 12:44 PM CDT) Only the most recent of2 resultswithin the time period is included. RBC 51-100(A) 0-2, None Seen /HPF 12/14/2024 1:02 PM CDT [facility] WBC 3-5 0-2, 3-5, None Seen /HPF 12/14/2024 1:02 PM CDT [facility] BACTERIA Many(A) None Seen, Rare, Few Bacteria/ HPF 12/14/2024 1:02 PM CDT [facility] EPITHELIAL CELLS Few None Seen, Few Epi/HPF 12/14/2024 1:02 PM CDT [facility] Mucus Present 12/14/2024 1:02 PM CDT [facility] WHITE CELL CLUMPS Present(A) (none) 12/14/2024 1:02 PM CDT [facility] Urine URINE SPECIMEN / Unknown Non-Blood / Unknown 12/14/2024 12:44 PM CDT 12/14/2024 12:44 PM CDT us Maira Reece MD URINE Final Resu lt Performing Organization Address City/[facility]/ZIP Co de Phone Number [facility] [address] [place] [address] * URINE CULTURE [84686.2] - STAT (12/14/2024 12:44 PM CDT) Only the most recent of2 resultswithin the time period is included. CULTURE No growth (<1,000 CFU/mL) 12/16/2024 2:39 PM CDT [facility] Urine URINE SPECIMEN / Unknown Non-Blood / Unknown 12/14/2024 12:44 PM CDT 12/14/2024 12:44 PM CDT Maira Reece MD MICROBIOLOGY Final Resu lt Performing Organization Address City/[facility]/ZIP Co de Phone Number [facility] [address] [place] [address], [place] * (ABNORMAL) UA W/ SEDIMENT EXAM REFLEXED PER CRITERIA [72773.2] - STAT (12/14/2024 12:44 PM CDT) Only the most recent of2 resultswithin the time period is included. COLOR Yellow Yellow Color 12/14/2024 1:[address] [facility] CLARITY Clear Clear Clarity 12/14/2024 1:[address] [facility] SPECIFIC GRAVITY,URINE 1.015 1.010, 1.015, 1.020, 1.025 12/14/2024 1:[address] [facility] PH,URINE 6.0 6.0, 7.0, 8.0, 5.5, 6.5, 7.5, 8.5 12/14/2024 1:[address] [facility] UROBILINOGEN, QUALITATIVE Normal Normal EU/dl 12/14/2024 1:[address] [facility] PROTEIN, URINE 30(A) Negative mg/dL 12/14/2024 1:[address] [facility] GLUCOSE, URINE Negative Negative mg/dL 12/14/2024 1:[address] [facility] KETONES,URINE Trace(A) Negative mg/dL 12/14/2024 1:[address] [facility] BILIRUBIN,URI NE Negative Negative 12/14/2024 1:[address] [facility] OCCULT BLOOD,URINE Large(A) Negative 12/14/2024 1:[address] [facility] NITRITE Negative Negative 12/14/2024 1:[address] [facility] LEUKOCYTE ESTERASE Trace(A) Negative 12/14/2024 1:[address] [facility] Urine URINE SPECIMEN / Unknown Non-Blood / Unknown 12/14/2024 12:44 PM CDT 12/14/2024 12:44 PM CDT us Maira Reece MD URINE Final Resu lt [facility] [address] [place] [address] * (ABNORMAL) CBC WITH AUTO DIFFERENTIAL (12/14/2024 12:38 PM CDT) WHITE BLOOD COUNT 6.7 4.5 - 11.0 thou/cu mm 12/14/2024 12:[address] [facility] RED BLOOD COUNT 5.38(H) 4.00 - 5.20 mil/cu mm 12/14/2024 12:[address] [facility] HEMOGLOBIN 13.7 12.0 - 16.0 g/dL 12/14/2024 12:[address] [facility] HEMATOCRIT 43.0 33.0 - 51.0 % 12/14/2024 12:[address] [facility] MCV 80 80 - 100 fL 12/14/2024 12:[address] [facility] MCH 25.5(L) 26.0 - 34.0 pg 12/14/2024 12:[address] [facility] MCHC 31.9(L) 32.0 - 36.0 g/dL 12/14/2024 12:[address] [facility] RDW 16.0(H) 11.5 - 15.5 % 12/14/2024 12:[address] [facility] PLATELET COUNT 470(H) 140 - 440 thou/cu mm 12/14/2024 12:[address] [facility] MPV 9.3 6.5 - 11.0 fL 12/14/2024 12:[address] [facility] % NEUT 77.7 % 12/14/2024 12:[address] [facility] % LYMPH 12.5 % 12/14/2024 12:[address] [facility] % MONO 7.9 % 12/14/2024 12:[address] [facility] % EOS 1.3 % 12/14/2024 12:[address] [facility] % BASO 0.6 % 12/14/2024 12:[address] [facility] ABSOLUTE NEUTROPHILS 5.2 1.7 - 7.0 thou/cu mm 12/14/2024 12:58 PM T [facility] ABSOLUTE LYMPHOCYTES 0.8(L) 0.9 - 2.9 thou/cu mm 12/14/2024 12:58 PM T [facility] ABSOLUTE MONOCYTES 0.5 <0.9 thou/cu mm 12/14/2024 12:58 PM T [facility] ABSOLUTE EOSINOPHILS 0.1 <0.5 thou/cu mm 12/14/2024 12:58 PM T [facility] ABSOLUTE BASOPHILS 0.0 <0.3 thou/cu mm 12/14/2024 12:[address] [facility] Blood BLOOD SPECIMEN / Unknown [facility] / Unknown 12/14/2024 12:38 PM CDT 12/14/2024 12:39 PM CDT us Maira Reece MD HEMATOLOGY Final Resu lt [facility] [address] [place] [address] * (ABNORMAL) STAT Basic Metabolic Panel BMP (12/14/2024 12:38 PM CDT) Only the most recent of2 resultswithin the time period is included. SODIUM 135(L) 136 - 145 mmol/L 12/14/2024 1:[address] [facility] POTASSIUM 4.0 3.5 - 5.1 mmol/L 12/14/2024 1:[address] [facility] CHLORIDE 98 98 - 107 mmol/L 12/14/2024 1:[address] [facility] CO2,TOTAL 26 22 - 29 mmol/L 12/14/2024 1:[address] [facility] ANION GAP 11 5 - 18 12/14/2024 1:[address] [facility] GLUCOSE 106(H) 70 - 99 mg/dL 12/14/2024 1:[address] [facility] CALCIUM 10.0 8.8 - 10.4 mg/dL 12/14/2024 1:16 PM CDT [facility] Comment: Reference ranges for this test were updated on 01/31/2024 to reflect our healthy population more accurately. Reference range changes are not retroactively applied to results, but previous results using the same methodology can be interpreted in the context of the new reference range. BUN 15 8 - 23 mg/dL 12/14/2024 1:16 PM CDT [facility] CREATININE 1.08(H) 0.50 - 0.90 mg/dL 12/14/2024 1:16 PM CDT [facility] BUN/CREAT RATIO 14 10 - 20 1:16 PM CDT [facility] eGFR 57(L) >90 mL/min/1. 73m2 12/14/2024 1:16 PM CDT [facility] Comment:As of 2021, eG FR is calculated by the CKD-EPI creatinine equation without race adjustment. eGFR can be influenced by muscle mass, exercise, and diet. The reported eGFR is an estimation only and is only applicable if the renal function is stable. Blood BLOOD SPECIMEN / Unknown [facility] / Unknown 12/14/2024 12:38 PM CDT 12/14/2024 12:39 PM CDT us Maira Reece MD CHEMISTRY Final Resu lt [facility] [address] [place] [address] * CT ABDOMEN PELVIS STONE PROTOCOL WO (12/14/2024 12:25 PM CDT) Anatomical Region Laterality Modality Abdomen, Pelvis, AORTA, LIVER, SPLEEN Computed Tomography 12/14/2024 3:07 PM CDT Addenda Addendum by Winnie Coleman MD on 12/14/2024 3:37 PM CDT INDICATION: Urinary tract infection, uncomplicated, hematuria, flank pain. COMPARISON: None. TECHNIQUE: CT of the abdomen and pelvis without intravenous contrast. Multiplanar axial, coronal, and sagittal reformats were reconstructed. Contrast: None. Dictation delayed due to priority entry error. FINDINGS: Lung bases: Extensive pulmonary masses and nodules. The largest measures 6.5 x 6.5 cm on series 3, image 15. This appears to be several nodules that are conglomerated. Most of the nodules are 1-3 cm. Liver: Nodular liver contour suggests some degree of fibrosis or cirrhosis. Gallbladder and bile ducts: Normal gallbladder. No bile duct dilation. Pancreas: Normal. Spleen: Coarse calcification at the splenic hilum. Normal spleen size. Adrenal glands: There is a 1.8 x 1.6 x 1.4 centimeter left adrenal nodule that is made up entirely of macroscopic fat consistent with a myelolipoma. More anteriorly the left adrenal gland has a nodular thickened appearance that measures 1.9 x 1.4 cm on series 2, image 65. This has indeterminate Hounsfield units. There is a right adrenal nodule that measures 1.6 x 1.6 cm on series 2, image 70. The right adrenal nodule has Hounsfield units of about 5 and is probably an adenoma. Left kidney: There is a very large infiltrative heterogeneous left renal mass. Exact measurements are difficult without IV contrast, but it measures at least 7 x 7 x 8 cm. There is expansion of the left renal vein and tumor thrombus is considered likely. There is extensive venous collateralization through the ovarian and lumbar veins. The tumor extends to Gerota`s fascia posteriorly with long segment effacement of the normal fat plane between the kidney and posterior abdominal wall. No direct invasion of any of the adjacent organs seen. The collecting system is not well evaluated but does not appear to be particularly dilated. The left ureter is not dilated. Right kidney: Indeterminate right upper pole renal lesion with both cystic and hyperdense components. There is a 3 millimeter nonobstructing calculus in the right lower pole. No right-sided ureteral calculus. No right urinary tract dilatation. Urinary bladder: Partially filled. Pelvis: Expected postmenopausal appearance of the uterus and both ovaries. Vessels: See above regarding the left renal vein. Minimal atherosclerosis. Limited assessment without contrast. Bowel: No dilated or inflamed bowel. Normal appendix. Diverticulosis without diverticulitis. Lxaf-td-gdilewbs stool burden. Lymph nodes: No enlarged lymph nodes by size criteria. Peritoneum: No ascites. Abdominal wall: Diastasis recti. No bowel containing hernia. No abdominal wall mass or collection. Bones: No fractures. No focal worrisome bone lesions. IMPRESSION: 1. Very large left renal mass is likely renal cell carcinoma. 2. High suspicion for left renal vein tumor thrombus. 3. Extensive pulmonary metastasis. 4. There is an indeterminate left adrenal nodule as well as a left adrenal myelolipoma. The right adrenal nodule has Hounsfield units more consistent with an adenoma. 5. Indeterminate right renal lesion should be better characterized prior to left renal intervention. Please note that all CT scans at this facility use dose modulation, iterative reconstruction, and/or weight-based dosing when appropriate to reduce radiation dose to as low as reasonably achievable. Dictated by Winnie Coleman MD @ 12/14/2024 3:07:37 PM ----- ADDENDUM ----- Case discussed with Dr. Reece at 3:36 p.m. on 12/14/2024. Dictated by Winnie Coleman MD @ Dec 14 2024 3:35PM (Electronically Signed) Impressions 12/14/2024 3:07 PM CDT 1. Very large left renal mass is likely renal cell carcinoma. 2. High suspicion for left renal vein tumor thrombus. 3. Extensive pulmonary metastasis. 4. There is an indeterminate left adrenal nodule as well as a left adrenal myelolipoma. The right adrenal nodule has Hounsfield units more consistent with an adenoma. 5. Indeterminate right renal lesion should be better characterized prior to left renal intervention. Please note that all CT scans at this facility use dose modulation, iterative reconstruction, and/or weight-based dosing when appropriate to reduce radiation dose to as low as reasonably achievable. Dictated by Winnie Coleman MD @ 12/14/2024 3:07:37 PM (Electronically Signed) Narrative 12/14/2024 3:07 PM CDT For Patients: As a result of the Century Cures Act, medical imaging exams and procedure reports are released immediately into your electronic medical record. You may view this report before your referring provider. If you have questions, please contact your health care provider. INDICATION: Urinary tract infection, uncomplicated, hematuria, flank pain. COMPARISON: None. TECHNIQUE: CT of the abdomen and pelvis without intravenous contrast. Multiplanar axial, coronal, and sagittal reformats were reconstructed. Contrast: None. Dictation delayed due to priority entry error. FINDINGS: Lung bases: Extensive pulmonary masses and nodules. The largest measures 6.5 x 6.5 cm on series 3, image 15. This appears to be several nodules that are conglomerated. Most of the nodules are 1-3 cm. Liver: Nodular liver contour suggests some degree of fibrosis or cirrhosis. Gallbladder and bile ducts: Normal gallbladder. No bile duct dilation. Pancreas: Normal. Spleen: Coarse calcification at the splenic hilum. Normal spleen size. Adrenal glands: There is a 1.8 x 1.6 x 1.4 centimeter left adrenal nodule that is made up entirely of macroscopic fat consistent with a myelolipoma. More anteriorly the left adrenal gland has a nodular thickened appearance that measures 1.9 x 1.4 cm on series 2, image 65. This has indeterminate Hounsfield units. There is a right adrenal nodule that measures 1.6 x 1.6 cm on series 2, image 70. The right adrenal nodule has Hounsfield units of about 5 and is probably an adenoma. Left kidney: There is a very large infiltrative heterogeneous left renal mass. Exact measurements are difficult without IV contrast, but it measures at least 7 x 7 x 8 cm. There is expansion of the left renal vein and tumor thrombus is considered likely. There is extensive venous collateralization through the ovarian and lumbar veins. The tumor extends to Gerota`s fascia posteriorly with long segment effacement of the normal fat plane between the kidney and posterior abdominal wall. No direct invasion of any of the adjacent organs seen. The collecting system is not well evaluated but does not appear to be particularly dilated. The left ureter is not dilated. Right kidney: Indeterminate right upper pole renal lesion with both cystic and hyperdense components. There is a 3 millimeter nonobstructing calculus in the right lower pole. No right-sided ureteral calculus. No right urinary tract dilatation. Urinary bladder: Partially filled. Pelvis: Expected postmenopausal appearance of the uterus and both ovaries. Vessels: See above regarding the left renal vein. Minimal atherosclerosis. Limited assessment without contrast. Bowel: No dilated or inflamed bowel. Normal appendix. Diverticulosis without diverticulitis. Wqwu-nb-bfknxbdv stool burden. Lymph nodes: No enlarged lymph nodes by size criteria. Peritoneum: No ascites. Abdominal wall: Diastasis recti. No bowel containing hernia. No abdominal wall mass or collection. Bones: No fractures. No focal worrisome bone lesions. Procedure Note Winnie Coleman MD - 12/14/2024 For Patients: As a result of the 21st Century Cures Act, medical imagingexams and procedure reports are released immediately into your electronicmedical record. You may view this report before your referring provider.If you have questions, please contact your health care provider. INDICATION: Urinary tract infection, uncomplicated, hematuria, flank pain. COMPARISON: None. TECHNIQUE: CT of the abdomen and pelvis without intravenous contrast. Multiplanaraxial, coronal, and sagittal reformats were reconstructed. Contrast: None. Dictation delayed due to priority entry error. FINDINGS: Lung bases: Extensive pulmonary masses and nodules. The largest measures6.5 x 6.5 cm on series 3, image 15. This appears to be several nodulesthat are conglomerated. Most of the nodules are 1-3 cm. Liver: Nodular liver contour suggests some degree of fibrosis orcirrhosis. Gallbladder and bile ducts: Normal gallbladder. No bile duct dilation. Pancreas: Normal. Spleen: Coarse calcification at the splenic hilum. Normal spleen size. Adrenal glands: There is a 1.8 x 1.6 x 1.4 centimeter left adrenal nodulethat is made up entirely of macroscopic fat consistent with a myelolipoma.More anteriorly the left adrenal gland has a nodular thickened appearancethat measures 1.9 x 1.4 cm on series 2, image 65. This has indeterminateHounsfield units. There is a right adrenal nodule that measures 1.6 x 1.6cm on series 2, image 70. The right adrenal nodule has Hounsfield units ofabout 5 and is probably an adenoma. Left kidney: There is a very large infiltrative heterogeneous left renalmass. Exact measurements are difficult without IV contrast, but itmeasures at least 7 x 7 x 8 cm. There is expansion of the left renal veinand tumor thrombus is considered likely. There is extensive venouscollateralization through the ovarian and lumbar veins. The tumor extendsto Gerota`s fascia posteriorly with long segment effacement of the normalfat plane between the kidney and posterior abdominal wall. No directinvasion of any of the adjacent organs seen. The collecting system is notwell evaluated but does not appear to be particularly dilated. The leftureter is not dilated. Right kidney: Indeterminate right upper pole renal lesion with both cysticand hyperdense components. There is a 3 millimeter nonobstructing calculusin the right lower pole. No right-sided ureteral calculus. No righturinary tract dilatation. Urinary bladder: Partially filled. Pelvis: Expected postmenopausal appearance of the uterus and bothovaries. Vessels: See above regarding the left renal vein. Minimal atherosclerosis.Limited assessment without contrast. Bowel: No dilated or inflamed bowel. Normal appendix. Diverticulosiswithout diverticulitis. Evdl-by-qltewcma stool burden. Lymph nodes: No enlarged lymph nodes by size criteria. Peritoneum: No ascites. Abdominal wall: Diastasis recti. No bowel containing hernia. No abdominalwall mass or collection. Bones: No fractures. No focal worrisome bone lesions. IMPRESSION: 1. Very large left renal mass is likely renal cell carcinoma. 2. High suspicion for left renal vein tumor thrombus. 3. Extensive pulmonary metastasis. 4. There is an indeterminate left adrenal nodule as well as a left adrenalmyelolipoma. The right adrenal nodule has Hounsfield units more consistentwith an adenoma. 5. Indeterminate right renal lesion should be better characterized priorto left renal intervention. Please note that all CT scans at this facility use dose modulation,iterative reconstruction, and/or weight-based dosing when appropriate toreduce radiation dose to as low as reasonably achievable. Dictated by Winnie Coleman MD @ 12/14/2024 3:07:37 PM (Electronically Signed) Maira Reece MD CT Edited Res ult - Final * XR MAMMO BILAT SCREENING (11/06/2024 8:36 AM CDT) Anatomical Region Laterality Modality BREASTS, Breast Left, Breast Right Bilateral Mammography Impressions 11/06/2024 8:41 AM CDT There is no radiographic evidence for malignancy. Recommend annual mammograms. MAMMOGRAM ASSESSMENT: ACR 1 Negative PATIENTS: You will also receive a letter with your examination results in an easy to read format. If you have questions about your results, please contact your referring provider. Narrative 11/06/2024 8:41 AM CDT For Patients: As a result of the Cures Act, medical imaging exams and procedure reports are released immediately into your electronic medical record. You may view this report before your referring provider. If you have questions, please contact your health care provider. XR MAMMO BILAT SCREENING [[id number]] CLINICAL HISTORY: This is an asymptomatic 64 y.o. patient. INDICATION FOR EXAM: Mammogram Screening. TECHNIQUE: CC and MLO views were obtained. This study was evaluated with the assistance of Computer-Aided Detection. COMPARISON FILM: Yes 08/29/23 FINDINGS: The breasts are almost entirely fatty. There are no dominant masses, suspicious micro calcifications or areas of architectural distortion. Maira Reece MD MAMMO Final Resu lt * (ABNORMAL) HEMOGLOBIN A1C (11/05/2024 11:06 AM CDT) HEMOGLOBIN A1C 6.7(H) <5.7 % [facility] Comment: For someone without known diabetes, a hemoglobin A1c value of 6.5% or greater indicates that they may have diabetes and this should be confirmed with a follow-up test. For someone with known diabetes, a value <7% indicates that their diabetes is well controlled and a value greater than or equal to 7% indicates suboptimal control. A1c targets should be individualized based on duration of diabetes, age, comorbid conditions, and other considerations. Currently, no consensus exists regarding use of hemoglobin A1c for diagnosis of diabetes for children. Blood BLOOD SPECIMEN / Unknown 11/05/2024 11:06 AM CDT 11/05/2024 11:08 AM CDT Narrative [facility] - 11/06/2024 4:28 AM CDT FASTING:YES FASTING: YES us Maira Reece MD CHEMISTRY Final Resu lt [facility] [address] [place] [address], [facility] [address] [place] [address] * (ABNORMAL) LIPID PANEL W REFLEX MEASURED LDL (11/05/2024 11:06 AM CDT) CHOLESTEROL, TOTAL 118 <200 mg/dL [facility] HDL CHOLESTEROL 45(L) > OR = 50 mg/dL [facility] TRIGLYCERIDES 83 <150 mg/dL [facility] LDL-CHOLESTEROL 56 mg/dL (calc) [facility] Comment: Reference range: <100 Desirable range <100 mg/dL for primary prevention; <70 mg/dL for patients with CHD or diabetic patients with > or = 2 CHD risk factors. LDL-C is now calculated using the Renetta calculation, which is a validated novel method providing better accuracy than the Friedewald equation in the estimation of LDL-C. Byron SS et al. KELI. 2013;310(19): 0939-0143 (http://education.Casacanda/faq/XLG281) CHOL/HDLC RATIO 2.6 <5.0 (calc) [facility] NON HDL CHOLESTEROL 73 <130 mg/dL (calc) [facility] Comment: For patients with diabetes plus 1 major ASCVD risk factor, treating to a non-HDL-C goal of <100 mg/dL (LDL-C of <70 mg/dL) is considered a therapeutic option. Blood BLOOD SPECIMEN / Unknown 11/05/2024 11:06 AM CDT 11/05/2024 11:08 AM CDT Narrative [facility] - 11/06/2024 3:18 AM CDT FASTING:YES FASTING: YES Maira Reece MD CHEMISTRY Final Resu lt [facility] [address] [place] [address], [facility] [address] [place] [address] * (ABNORMAL) CBC W PLT NO DIFF (11/05/2024 11:06 AM CDT) WHITE BLOOD CELL COUNT 7.5 3.8 - 10.8 Thousand/u L [facility] RED BLOOD CELL COUNT 5.46(H) 3.80 - 5.10 Million/uL [facility] HEMOGLOBIN 14.7 11.7 - 15.5 g/dL [facility] HEMATOCRIT 46.5(H) 35.0 - 45.0 % [facility] MCV 85.2 80.0 - 100.0 fL [facility] MCH 26.9(L) 27.0 - 33.0 pg [facility] MCHC 31.6(L) 32.0 - 36.0 g/dL [facility] Comment: For adults, a slight decrease in the calculated MCHC value (in the range of 30 to 32 g/dL) is most likely not clinically significant; however, it should be interpreted with caution in correlation with other red cell parameters and the patient's clinical condition. RDW 15.0 11.0 - 15.0 % [facility] PLATELET COUNT 326 140 - 400 Thousand/u L [facility] MPV 10.4 7.5 - 12.5 fL [facility] Blood BLOOD SPECIMEN / Unknown 11/05/2024 11:06 AM CDT 11/05/2024 11:08 AM CDT Narrative [facility] - 11/06/2024 3:05 AM CDT FASTING:YES FASTING: YES us Maira Reece MD HEMATOLOGY Final Resu lt [facility] [address] [place] [address], [facility] [address] [place] [id number] * ALT (SGPT) (11/05/2024 11:06 AM CDT) ALT 17 6 - 29 U/L [facility] Blood BLOOD SPECIMEN / Unknown 11/05/2024 11:06 AM CDT 11/05/2024 11:08 AM CDT Narrative [facility] - 11/06/2024 3:18 AM CDT FASTING:YES FASTING: YES us Maira Reece MD CHEMISTRY Final Resu lt [facility] [address] [place] [address], [facility] [address] [place] [address] * SCAN-EYE EXAM (10/11/2024 12:00 AM CDT) us Scanner OTHER Final Result * XR DXA BONE DENSITY 2 SITES AXIAL [[id number]] (01/25/2024 2:04 PM CDT) Anatomical Region Laterality Modality Spine, HIPS, HIPL, HIPR Computed Radiography Impressions 01/27/2024 8:06 AM CDT Osteopenia. RECOMMENDATIONS: The National Osteoporosis Foundation recommends pharmacologic treatment for patients with T-scores of -2.5 or less, patients with prior history of fragility fractures, or patients with 10-year probability of greater than 3% at hips or greater than 20% of suffering major osteoporotic fractures. Recommend continued optimization of calcium and vitamin D intake through dietary means and/or supplementation and regular exercise. ZAC NION M.D. [email or web address]/[email or web address] Narrative 01/27/2024 8:06 AM CDT For Patients: Results are automatically released to your [employer] account once available, in compliance with federal regulations. This means that you may see your results before your provider has had a chance to review them. Please allow 2-3 business days for your provider to comment on the results. XR DXA Bone Mineral Density (BMD) EXAM LOCATION: [address] [id number] PATIENT NAME: Liliana Sharp DATE OF : 1960 EXAM DATE: 01/25/2024 REQUESTING PROVIDER: Maira Reece MD GENDER AT : female HEIGHT: 62 inches WEIGHT: 226 pounds MENOPAUSAL STATUS: Postmenopausal RACE/ETHNICITY: White RISK FACTORS: Family History of Osteoporosis, Family History of Hip Fracture (parental), History of Fragility Fracture (at a major site), White Race, and Diabetes type 2 CURRENT MEDICATION FOR BONE LOSS: NONE INDICATION: Post-Menopausal COMPARISON DATE(S): None DXA scans are compared to prior studies for a patient only when the two (or more) studies were performed on the same scanner. It is not possible to compare data generated on one scanner to data from another because there are not standards in DXA equipment. This applies even if the two scanners are made by the same imaging nurse. PROCEDURE: Dual-energy x-ray absorptiometry performed with routine technique. Reporting is completed in the form of a T-score. The T-score represents the standard deviation from peak bone mass based on young healthy adult. A Z-score is used for diagnosis in premenopausal women, and for men under the age of 50. FINDINGS: RESULT LUMBAR SPINE L1 - L4 BMD: 1.279 g/cm2 T-Score: + 0.8 Z-Score: + 1.3 RESULTS FEMUR Left femoral neck BMD: 0.844 g/cm2 T-Score: - 1.4 Z-Score: - 0.7 Right femoral neck BMD: 0.831 g/cm2 T-Score: - 1.5 Z-Score: - 0.8 Left total hip BMD: 0.994 g/cm2 T-Score: - 0.1 Z-Score: + 0.3 Right total hip BMD: 0.919 g/cm2 T-Score: - 0.7 Z-Score: - 0.3 WHO criteria: Normal: T-score at or above -1 SD Osteopenia: T-score between -1.1 and -2.4 SD Osteoporosis: T-score at or below -2.5 SD RIGHT: FRAX RISK CALCULATION (USED FOR OSTEOPENIA ONLY): 10-year probability of major osteoporotic fracture: 7.9%. 10-year probability of hip fracture: 0.8%. us Maira Reece MD DEXA Final Resu lt * sDNA-FIT External (Cologuard) [[id number]] (08/15/2023 7:34 AM CDT) NONINV COLON CA DNA+OCC BLD SCRN STL-IMP Negative Negative 08/19/2023 6:13 PM CDT [facility] (CLIA #:[id number]) Comment: NEGATIVE TEST RESULT. A negative Cologuard result indicates a low likelihood that a colorectal cancer (CRC) or advanced adenoma (adenomatous polyps with more advanced pre-malignant features) is present. The chance that a person with a negative Cologuard test has a colorectal cancer is less than 1 in 1500 (negative predictive value >99.9%) or has an advanced adenoma is less than 5.3% (negative predictive value 94.7%). These data are based on a prospective cross-sectional study of 10,000 individuals at average risk for colorectal cancer who were screened with both Cologuard and colonoscopy. (Pamela Morris. et al, N Engl J Med 2014;370(14):2566-1189) The normal value (reference range) for this assay is negative. COLOGUARD RE-SCREENING RECOMMENDATION: Periodic colorectal cancer screening is an important part of preventive healthcare for asymptomatic individuals at average risk for colorectal cancer. Following a negative Cologuard result, the [place] [employer] and U.S. Multi-Society Task Force screening guidelines recommend a Cologuard re-screening interval of 3 years. References: [place] [employer] Guideline for Colorectal Cancer Screening: https://www.cancer.org/cancer/pyujq-olwfsl-zozcgi/omnbarcrs-vsqsnuokt-yqrgbod/ac s-rec ommendations.html.; Deejay CELESTE, Christian ROBERTS, J Carlos PaezK, Colorectal Cancer Screening: Recommendations for Physicians and Patients from the U.S. Multi-Society Task Force on Colorectal Cancer Screening , Am J Gastroenterology 2017; 112:5372-2245. TEST DESCRIPTION: Composite algorithmic analysis of stool DNA-biomarkers with hemoglobin immunoassay. Quantitative values of individual biomarkers are not reportable and are not associated with individual biomarker result reference ranges. Cologuard is intended for colorectal cancer screening of adults of either sex, 45 years or older, who are at average-risk for colorectal cancer (CRC). Cologuard has been approved for use by the U.S. FDA. The performance of Cologuard was established in a cross sectional study of average-risk adults aged 50-84. Cologuard performance in patients ages 45 to 49 years was estimated by sub-group analysis of near-age groups. Colonoscopies performed for a positive result may find as the most clinically significant lesion: colorectal cancer [4.0%], advanced adenoma (including sessile serrated polyps greater than or equal to 1cm diameter) [20%] or non- advanced adenoma [31%]; or no colorectal neoplasia [45%]. These estimates are derived from a prospective cross-sectional screening study of 10,000 individuals at average risk for colorectal cancer who were screened with both Cologuard and colonoscopy. (aPmela Richardson et al, N Engl J Med 2014;370(14):1740-8407.) Cologuard may produce a false negative or false positive result (no colorectal cancer or precancerous polyp present at colonoscopy follow up). A negative Cologuard test result does not guarantee the absence of CRC or advanced adenoma (pre-cancer). The current Cologuard screening interval is every 3 years. ([place] [employer] and U.S. Multi-Society Task Force). Cologuard performance data in a 10,000 patient pivotal study using colonoscopy as the reference method can be accessed at the following location: www.[email or web address] ([employer])/results. Additional description of the Cologuard test process, warnings and precautions can be found at [email or web address]. Stool specimen (specimen) ([facility]) 08/15/2023 7:34 AM CDT 08/16/2023 10:55 AM CDT Maira Reece MD URINE Final Resu lt [facility] (CLIA #:[id number]) [address] [place] [address], * ANTI HCV (07/25/2023 9:28 AM CDT) HEPATITIS C ANTIBODY Non-Reacti ve Non-React macrina 07/25/2023 1:01 PM CDT [email or web address] Comment:Please note, per www .CDC.gov: If a patient is known to be at high risk of HCV infection, or is symptomatic, and the physician's suspicion of HCV infection is high, HCV RNA testing is often employed and is of diagnostic value, even after an initial negative anti-HCV test result. Blood BLOOD SPECIMEN / Unknown Venipuncture / Unknown 07/25/2023 9:28 AM CDT 07/25/2023 9:31 AM CDT us Maira Reece MD SEND OUTS Final Resu lt [facility] [address] [place] [address], [place] from Last 3 Months or Most Recently Relevant to Health Maintenance Insurance [facility] MEDICARE ADVANTAGE MEDICARE PART A HB ONLY [facility] Care Teams Drywall Professional Relationship Specialty Start Date End Date Maira Reece MD [address] [place], [place] [id number] PCP - General Family Practice 12/26/15 Sola Maxwell, RN [address] [place] [address] Nurse Navigator - Oncology Registered Nurse 12/17/24
[2024-12-18 11:12] LABS: Hematocrit* 48.0 % (33.0-51.0); Hemoglobin* 15.3 gm/dL (12.0-16.0); Immature Granulocytes Abs Auto 0.10 K/uL (0.00-0.30); Immature Granulocytes Pct Auto 0.7 %; Mean Corpuscular HGB Conc 32 gm/dL (32-36); Mean Corpuscular Hemoglobin 25 pg (26-34); Mean Corpuscular Volume 80 fL (80-100); RDW Coefficient of Variation % 17.2 % (11.5-15.5); Red Blood Count* 6.04 m/uL (4.00-5.20); White Blood Count* 14.81 K/uL (4.50-11.00)
[2024-12-18 11:16] LABS: Lymphocytes Absolute Auto 0.70 K/uL (0.90-2.90); Slide Review Reflex No
[2024-12-18 11:50] LABS: Chloride* 99 mmol/L (96-114)
[2024-12-18 11:51] LABS: Potassium* 4.3 mmol/L (3.6-5.1); Sodium* 133 mmol/L (135-149)
[2024-12-18 11:53] LABS: Blood Urea Nitrogen* 19 mg/dL (7-30); Creatinine* 1.2 mg/dL (0.5-1.5); Est. Creatinine Clearance* 36.47; Estimated Glomerular Filt Rate 50 ml/min
[2024-12-18 11:54] LABS: Anion Gap 9 mEq/L (7-15); Calcium* 9.8 mg/dL (8.4-10.6); Carbon Dioxide* 25 mmol/L (20-32); Glucose* 169 mg/dL (60-115)
--- NOTE | 2024-12-18 12:14 | CRLHL7_ITS ---
For Patients: As a result of the Cures Act, medical imaging exams and procedure reports are released immediately into your electronic medical record. You may view this report before your referring provider. If you have questions, please contact your health care provider. INDICATION: Allergic reaction. Chills. Cold. Hypoxia. TECHNIQUE: Chest 1 portable view. COMPARISON: None. FINDINGS: No pneumothorax or pleural effusion. Bilateral pulmonary nodules and masses greatest in the right mid to lower lung zone. Cardiac and mediastinal contours are within normal limits. Upper abdomen and osseous structures as imaged show no acute abnormality. IMPRESSION: Bilateral pulmonary nodules and masses concerning for metastasis or possibly septic emboli. CT chest, abdomen and pelvis with IV contrast recommended if the etiology of this findings is not known. Dictated by Amanuel Carbajal MD @ 12/18/2024 1:32:35 PM (Electronically Signed)
[2024-12-18] MEDS: ALBUTEROL SULFATE 2.5 MG/3 ML VIAL.NEB NEB (12:35)
[2024-12-18 12:50] LABS: NT Pro B Type NatriureticPept* 443 pg/mL (See Note)
[2024-12-18 13:07] LABS: PCR FLU A Negative PCR FLU A (Negative); PCR FLU B Negative PCR FLU B (Negative); PCR RSV Negative PCR RSV (Negative); SARS PCR* Negative SARS-CoV-2 (Negative)
--- NOTE | 2024-12-18 13:28 | RESP.RT ---
Requested to give pt an albuterol nebulizer. BBS clear before TX, no change after. Decreased oxygen from 10L to 4L. SPO2 94%. Pt reports that she does get short of breath at home. Will walk around and use inhaler, and that seems to take care of it. Pt uses advair PRN, and a Red inhaler PRN. Suspect that her saturations run on the lower side of normal.
[2024-12-18 15:26] LABS: INR 1.56 (0.91-1.10); Prothrombin Time 19.6 Seconds
[2024-12-18 15:51] LABS: Appearance Urine Turbid (Clear)
[2024-12-18] MEDS: HEPARIN 5,000 UNIT/0.5 ML INJ 7600 UNIT IVP (17:06)
[2024-12-18] MEDS: HEPARIN 25,000 UNIT/500 ML BAG 30 UNIT IV (17:09)
--- NOTE | 2024-12-18 18:22 | ED.NURSE ---
Patient was provided with dinner.
== END 2024-12-18 21:51 | disposition short-term general hospital (02) ==
PROVIDERS: Emergency Provider Emergency Medicine; PCP Family Medicine
DX: T50.8X1A Poisoning by diagnostic agents, accidental (unintentional), initial encounter (principal); I82.3 Embolism and thrombosis of renal vein; D49.512 Neoplasm of unspecified behavior of left kidney; I82.220 Acute embolism and thrombosis of inferior vena cava; R09.02 Hypoxemia; R06.02 Shortness of breath
CPT/HCPCS: 36415; 71045; 80048; 81001; 82803; 83880; 84484; 85025; 85610; 85730; 87631; 93005; 94640; 94761; 96374; 96375; 99285; J1308; J1644; J2919; J7030

== ENCOUNTER 2024-12-18 21:24 | Outpatient (CLI) | payer MEDICARE, SELFPAY | END 2024-12-18 21:25 | disposition home or self-care (01) | LOC: AMB 12-19 14:16 | PROVIDERS: PCP Family Medicine; Visit Provider Emergency Medicine | DX: R09.2 Respiratory arrest (principal); N28.89 Other specified disorders of kidney and ureter; I82.3 Embolism and thrombosis of renal vein | CPT/HCPCS: A0425; A0434 ==